=== PATIENT | female | born 1970 ===

== ENCOUNTER 2018-12-31 11:07 | Emergency (ER) | payer OTHER ==
[2018-12-31 11:20] VITALS: BMI 24.9
[2018-12-31 11:25] VITALS: RESP 18
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
[2018-12-31 13:13] VITALS: BP 137/75; PULSE 65; TEMP 97.7; O2SAT 100
== END 2018-12-31 13:35 | disposition home or self-care (01) ==
LOC: ED 11:07
DX: R42 Dizziness and giddiness (principal); R10.9 Unspecified abdominal pain; V49.50XA Passenger injured in collision with unspecified motor vehicles in traffic accident, initial encounter